=== PATIENT | male | born 1955 | race Caucasian/White ===

== ENCOUNTER → 2023-11-20 06:33 | Day surgery (SDC) | payer MEDICARE, OTHER, SELFPAY | LOC: GI 06:33 | PROVIDERS: ATTENDING PHYSICIAN Internal Medicine Gastroenterology | DX: Z12.11 Encounter for screening for malignant neoplasm of colon (principal); K64.8 Other hemorrhoids; K57.30 Diverticulosis of large intestine without perforation or abscess without bleeding; Z98.890 Other specified postprocedural states; Z09 Encounter for follow-up examination after completed treatment for conditions other than malignant neoplasm; D12.2 Benign neoplasm of ascending colon; D12.5 Benign neoplasm of sigmoid colon; K63.5 Polyp of colon; K63.89 Other specified diseases of intestine; Z86.010 Personal history of colon polyps | CPT/HCPCS: 45385; 45380; 88305 ==

== ENCOUNTER → 2025-03-11 17:08 | Outpatient (REF) | payer OTHER, SELFPAY | LOC: MRI 3T 17:08 | PROVIDERS: ATTENDING PHYSICIAN Surgery; FAMILY PHYSICIAN Family Medicine | DX: R97.20 Elevated prostate specific antigen [PSA] (principal) | CPT/HCPCS: 72197; A9575 ==

== ENCOUNTER → 2025-04-13 10:56 | Outpatient (REF) | payer OTHER, MEDICARE, SELFPAY | LOC: PET 10:56 | PROVIDERS: ATTENDING PHYSICIAN Radiology Radiation Oncology | DX: C61 Malignant neoplasm of prostate (principal) | CPT/HCPCS: 78815; A9552 ==

== ENCOUNTER 2025-05-19 06:24 | Day surgery (SDC) | payer OTHER, SELFPAY | END 2025-05-19 12:12 | disposition home or self-care (01) | LOC: GI 06:24 | PROVIDERS: ATTENDING PHYSICIAN Internal Medicine Gastroenterology | DX: Z12.11 Encounter for screening for malignant neoplasm of colon (principal); D12.0 Benign neoplasm of cecum; D12.4 Benign neoplasm of descending colon; K57.30 Diverticulosis of large intestine without perforation or abscess without bleeding; K64.8 Other hemorrhoids; K29.70 Gastritis, unspecified, without bleeding; K20.90 Esophagitis, unspecified without bleeding; K44.9 Diaphragmatic hernia without obstruction or gangrene; K31.89 Other diseases of stomach and duodenum; Z86.0100 Personal history of colon polyps, unspecified; Z15.09 Genetic susceptibility to other malignant neoplasm; Z98.890 Other specified postprocedural states | CPT/HCPCS: 45385; 45380; 43239; 88305; 88342 ==

== ENCOUNTER → 2025-07-27 11:36 | Outpatient (REF) | payer OTHER, SELFPAY ==
[2025-07-27 13:57] LABS: Urine Character Clear (Clear)
[2025-07-27 14:14] LABS: Urine Squamous Cell 0-2 /LPF (Few)
[2025-07-27 14:15] LABS: Urine Red Blood Cell 0-2 /HPF (0-2)
== END ==
LOC: REG 11:36
PROVIDERS: ATTENDING PHYSICIAN Radiology Radiation Oncology
DX: C61 Malignant neoplasm of prostate (principal)
CPT/HCPCS: 81003; 81015